=== PATIENT | female | born 1965 | race Hispanic/Latino ===

== ENCOUNTER 2016-09-16 12:02 | Emergency (ER) | payer MEDICAID, OTHER ==
[2016-09-16 12:09] VITALS: BP 132/68; PULSE 80; RESP 20; TEMP 97.3; O2SAT 98
--- NOTE | 2016-09-16 12:39 | C.PDOC ---
History Of Present Illness A 50 year old female, with a past medical history of Hypertension, presents to the emergency room with complaints of bilateral knee pain with swelling for 1 week. Patient reports that she tripped and fell onto both knees 1 week ago. Patient denies any hip pain, ankle pain, leg pain, back pain, numbness, weakness , any sensory changes, or any other complaints. Time Seen by Provider: 09/16/16 12:10 Chief Complaint (Nursing): Lower Extremity Problem/Injury History Per: Patient History/Exam Limitations: no limitations Onset/Duration Of Symptoms: Other (1 week) Current Symptoms Are (Timing): Still Present Severity: Mild - Knee Description Of Injury: Fell Past Medical History Reviewed: Historical Data, Nursing Documentation, Vital Signs Vital Signs: Last Vital Signs Temp 97.3 F L 09/16/16 12:08 Pulse 80 09/16/16 12:08 Resp 20 09/16/16 12:08 BP 132/68 09/16/16 12:08 Pulse Ox 98 09/16/16 13:03 - Medical History PMH: Anxiety, Depression, HTN, Hypercholesterolemia, Hyperthyroidism Family History: States: Unknown Family Hx - Social History Hx Tobacco Use: No Hx Alcohol Use: Yes Hx Substance Use: No - Immunization History Hx Tetanus Toxoid Vaccination: No Hx Influenza Vaccination: No Hx Pneumococcal Vaccination: No Review Of Systems Musculoskeletal: Positive for: Other (Bilateral knee pain). Negative for: Back Pain, Leg Pain, Foot Pain Neurological: Negative for: Weakness, Numbness Physical Exam - Physical Exam Additional Physical Exam Comments: Constitutional: No acute distress. Head: Normocephalic. Atraumatic. Neck: Supple. Musculoskeletal: Mild abrasion to right knee with healing ecchymosis. Full ROM bilaterally. No specific areas of tenderness. Skin: No rash. Neurologic: Alert, no focal deficit. ED Course And Treatment O2 Sat by Pulse Oximetry: 98 - Other Rad Knee X-ray X-Ray: Interpreted by Me, Viewed By Me Interpretation: Knee X-ray Impression: As read by me, no fracture or dislocation. Medical Decision Making Medical Decision Making: Impression: A 50 year old female with bilateral knee pain after falling 1 week ago. Mild abrasion to right knee noted on PE. Plan: -- Toradol -- Knee X-ray Progress Notes: XRs negative for fracture. Will discharge patient home, continue NSAIDs, f/u PMD , return to ER for redness, inability to range, fever, or any other problem. Disposition - Disposition Referrals: Mack Orr MD [Non-Staff] - Disposition: HOME/ ROUTINE Disposition Time: 13:14 Condition: STABLE Prescriptions: Ibuprofen [Motrin] 600 mg PO Q6 #25 tab Acetaminophen [Tylenol 325mg tab] 2 tab PO Q4H #30 tab Instructions: Knee Pain (ED) - Clinical Impression Clinical Impression: Knee contusion - Scribe Statement The provider has reviewed the documentation as recorded by the Scribcharlie Sanchez All medical record entries made by the Candelariaibcharlie were at my direction and personally dictated by me. I have reviewed the chart and agree that the record accurately reflects my personal performance of the history, physical exam, medical decision making, and the department course for this patient. I have also personally directed, reviewed, and agree with the discharge instructions and disposition.
--- NOTE | 2016-09-16 13:16 | RAD ---
PROCEDURE: Bilateral knees dated 09/16/2016. HISTORY: bilateral knee pain, fall COMPARISON: No prior study available for comparison TECHNIQUE: Three views of the right and left knees performed FINDINGS: No evidence of acute displaced fracture nor dislocation. Osseous structures intact joint spaces preserved. There is a small to medium size left-sided suprapatellar joint effusion. IMPRESSION: No fractures. Small to medium size left-sided suprapatellar joint effusion.
== END 2016-09-16 14:06 | disposition home or self-care (01) ==
LOC: C.ER 12:02
DX: M25.561 Pain in right knee (principal); S80.02XA Contusion of left knee, initial encounter; S80.01XA Contusion of right knee, initial encounter; W01.0XXA Fall on same level from slipping, tripping and stumbling without subsequent striking against object, initial encounter; Y93.9 Activity, unspecified; Y92.9 Unspecified place or not applicable
CPT/HCPCS: 73562; 96372; 99284; J1885